=== PATIENT | male | born 1940 | race African-American/Black ===

== ENCOUNTER 2022-06-16 12:18 | Inpatient (IN) ==
[2022-06-16 13:55] LABS: Basophils % 0.4 % (0.0-0.8); Eosinophils # 0.2 10*3/uL (0.0-0.87); Hematocrit 46.4 VOL% (42.0-52.0); Hemoglobin 14.2 GM/DL (14.0-18.0); Immature Granulocytes % 0.4 %; Immature Granulocytes Absolute 0.04 #; Lymphocytes # 2.1 10*3/uL (1.4-4.0); Lymphocytes % 22.6 % (21.2-54.2); Mean Corpuscular HGB Conc 30.6 GM/DL (32-36); Mean Corpuscular Volume 101.1 FL (87-102); Mean Platelet Volume 11.6 FL (9.6-12.0); Monocytes # 0.6 10*3/uL (0.11-0.8); Monocytes % 6.2 % (1.7-12.7); NRBC # 0.02 10*3/uL; Neutrophils % 68.4 % (38.7-73.9); Platelet Count 226 T/CUMM (130-400); Red Blood Count 4.59 MC/CUMM (3.8-5.5); Red Cell Distribution Width 14.7 % (9.3-17.3); White Blood Count 9.4 T/CUMM (4-12)
[2022-06-16 14:28] LABS: Albumin 3.5 G/DL (3.4-5.0); Bilirubin,Total 0.4 MG/DL (0.20-1.00); Calcium 10.4 MG/DL (8.5-10.1); Osmolality,Calculated 341.7 MOS/KG (273-304); Potassium 3.5 MMOL/L (3.5-5.1); Total Protein 8.8 G/DL (6.4-8.2)
[2022-06-16] MEDS ORDERED: ACETAMINOPHEN 325 MG TABLET PO PRN (15:43)
[2022-06-16] MEDS ORDERED: ONDANSETRON 4 MG/2 ML VIAL IV PRN (15:43)
[2022-06-16] MEDS ORDERED: GLUCAGON 1 MG VIAL IM PRN (15:43)
[2022-06-16] MEDS ORDERED: DOCUSATE SODIUM 100 MG CAPSULE PO PRN (15:43)
[2022-06-16] MEDS ORDERED: ALUMINUM/MAGNES/SIMETH MAX STR 30 ML UDCUP PO PRN (15:43)
[2022-06-16] MEDS ORDERED: LACTULOSE 20 GM/30 ML UDCUP PO PRN (15:43)
[2022-06-16] MEDS ORDERED: DEXTROSE 10% 250 ML BAG IV PRN (15:50)
[2022-06-16] MEDS ORDERED: SIMETHICONE CHEW 125 MG TABLET PO PRN (17:00)
[2022-06-16] MEDS: DEXTROSE 5% 1,000 ML IV SCH (18:07)
[2022-06-16] MEDS: DIVALPROEX ER 250 MG TABLET PO SCH (21:39)
[2022-06-16] MEDS: DONEPEZIL 5 MG TABLET PO SCH (21:39)
[2022-06-17 02:25] LABS: Bilirubin,Urine Negative (Negative); Blood, Urine Negative (Negative); Glucose,Urine (UA) Negative (Negative); Hyaline Casts,Urine 12 /LPF (0-3); Ketones,Urine Negative (Negative); Mucus,Urine Occasional /LPF (Occasional); Nitrite,Urine Negative (Negative); Protein,Urine Negative (Negative); RBC,Urine 1 /HPF (0-4); Squamous Epithelial Cell,Urine Occasional /HPF (0-10); Urine Appearance Clear (Clear); Urine Color Yellow (Yellow); Urine Specific Gravity 1.025 (1.001-1.035); Urine Urobilinogen 0.2 eU/dL (<2.0)
[2022-06-17 05:28] LABS: Basophils % 0.5 % (0.0-0.8); Eosinophils # 0.3 10*3/uL (0.0-0.87); Hemoglobin 12.3 GM/DL (14.0-18.0); Immature Granulocytes % 0.4 %; Immature Granulocytes Absolute 0.03 #; Lymphocytes # 2.1 10*3/uL (1.4-4.0); Lymphocytes % 24.6 % (21.2-54.2); Mean Corpuscular Volume 101.7 FL (87-102); Mean Platelet Volume 12.1 FL (9.6-12.0); Monocytes # 0.6 10*3/uL (0.11-0.8); Monocytes % 7.5 % (1.7-12.7); Platelet Count 183 T/CUMM (130-400); Red Blood Count 4.03 MC/CUMM (3.8-5.5); Red Cell Distribution Width 14.9 % (9.3-17.3); White Blood Count 8.4 T/CUMM (4-12)
[2022-06-17 05:59] LABS: Albumin 2.9 G/DL (3.4-5.0); Bilirubin,Total 0.6 MG/DL (0.20-1.00); Calcium 9.1 MG/DL (8.5-10.1); Osmolality,Calculated 344.5 MOS/KG (273-304); Potassium 3.1 MMOL/L (3.5-5.1); Risk Ratio 5.55; Thyroid Stimulating Hormone 2.14 uIU/ml (0.358-3.74); Total Protein 7.7 G/DL (6.4-8.2); VLDL Cholesterol 25.6 MG/DL
[2022-06-17] MEDS: DEXTROSE 5% 1,000 ML IV SCH ×2 (08:04→15:06)
[2022-06-17] MEDS: PANTOPRAZOLE 40 MG TABLET PO SCH (08:04)
[2022-06-17] MEDS: BISACODYL 5 MG TABLET PO SCH (08:04)
[2022-06-17] MEDS ORDERED: ZIPRASIDONE 20 MG/1 ML VIAL IM PRN (11:05)
[2022-06-17] MEDS ORDERED: MAGNESIUM SULF RIDER 2 GM/50 ML PREMIX IV PRN (11:16)
[2022-06-17] MEDS ORDERED: MAGNESIUM SULF RIDER 4 GM/100 ML PREMIX IV PRN (11:16)
[2022-06-17] MEDS ORDERED: traZODone 50 MG TABLET PO PRN (11:17)
[2022-06-17] MEDS: cefTRIAXone 1,000 MG in SODIUM CHLORIDE 0.9% 100 ML IV SCH (11:56)
[2022-06-17 12:30] LABS: Calcium 9.1 MG/DL (8.5-10.1); Osmolality,Calculated 336.7 MOS/KG (273-304); Potassium 3.3 MMOL/L (3.5-5.1)
[2022-06-17] MEDS: POTASSIUM CHLORIDE RIDER 10 MEQ/100 ML PREMIX IV PRN ×2 (13:56→15:06)
[2022-06-17 18:27] LABS: Calcium 9.3 MG/DL (8.5-10.1); Osmolality,Calculated 335.7 MOS/KG (273-304); Potassium 3.7 MMOL/L (3.5-5.1)
[2022-06-17] MEDS: APIXABAN 2.5 MG TABLET PO SCH (21:21)
[2022-06-17] MEDS: DIVALPROEX ER 250 MG TABLET PO SCH (21:21)
[2022-06-17] MEDS: DONEPEZIL 5 MG TABLET PO SCH (21:21)
[2022-06-18 00:46] LABS: Basophils % 0.5 % (0.0-0.8); Eosinophils # 0.2 10*3/uL (0.0-0.87); Eosinophils % 2.6 % (0.00-10.9); Hematocrit 40.3 VOL% (42.0-52.0); Hemoglobin 12.1 GM/DL (14.0-18.0); Immature Granulocytes % 0.4 %; Immature Granulocytes Absolute 0.03 #; Lymphocytes # 2.1 10*3/uL (1.4-4.0); Mean Corpuscular Volume 101.5 FL (87-102); Mean Platelet Volume 11.8 FL (9.6-12.0); Monocytes # 0.7 10*3/uL (0.11-0.8); Monocytes % 7.7 % (1.7-12.7); Neutrophils % 63.8 % (38.7-73.9); Platelet Count 172 T/CUMM (130-400); Red Blood Count 3.97 MC/CUMM (3.8-5.5); Red Cell Distribution Width 14.8 % (9.3-17.3); White Blood Count 8.4 T/CUMM (4-12)
[2022-06-18 00:54] LABS: Phosphorous 3.1 MG/DL (2.5-4.9)
[2022-06-18 00:56] LABS: Albumin 2.9 G/DL (3.4-5.0); Bilirubin,Total 0.5 MG/DL (0.20-1.00); Calcium 9.5 MG/DL (8.5-10.1); Osmolality,Calculated 330.9 MOS/KG (273-304); Potassium 3.2 MMOL/L (3.5-5.1); Total Protein 7.8 G/DL (6.4-8.2)
[2022-06-18] MEDS: POTASSIUM CHLORIDE RIDER 10 MEQ/100 ML PREMIX IV PRN ×4 (04:22→08:09)
[2022-06-18] MEDS: DEXTROSE 5% 1,000 ML IV SCH (08:08)
[2022-06-18] MEDS: METOPROLOL SUCCINATE XL 25 MG TABLET PO SCH (10:15)
[2022-06-18] MEDS: APIXABAN 2.5 MG TABLET PO SCH ×2 (10:15→21:52)
[2022-06-18] MEDS: BISACODYL 5 MG TABLET PO SCH (10:15)
[2022-06-18] MEDS: POLYETHYLENE GLYCOL POWDER 17 GM PACK PO SCH (10:15)
[2022-06-18] MEDS: PANTOPRAZOLE 40 MG TABLET PO SCH (10:15)
[2022-06-18] MEDS: cefTRIAXone 1,000 MG in SODIUM CHLORIDE 0.9% 100 ML IV SCH (10:21)
[2022-06-18 15:49] LABS: Calcium 9.3 MG/DL (8.5-10.1); Osmolality,Calculated 321.3 MOS/KG (273-304)
[2022-06-18] MEDS: DIVALPROEX ER 250 MG TABLET PO SCH (21:52)
[2022-06-18] MEDS: DONEPEZIL 5 MG TABLET PO SCH (21:53)
[2022-06-19 05:41] LABS: Albumin 2.8 G/DL (3.4-5.0); Bilirubin,Total 0.5 MG/DL (0.20-1.00); Calcium 9.2 MG/DL (8.5-10.1); Osmolality,Calculated 311.7 MOS/KG (273-304); Potassium 3.2 MMOL/L (3.5-5.1); Total Protein 7.3 G/DL (6.4-8.2)
[2022-06-19 05:55] LABS: Basophils % 0.3 % (0.0-0.8); Eosinophils # 0.2 10*3/uL (0.0-0.87); Eosinophils % 3.4 % (0.00-10.9); Hematocrit 37.4 VOL% (42.0-52.0); Hemoglobin 11.2 GM/DL (14.0-18.0); Immature Granulocytes % 0.2 %; Immature Granulocytes Absolute 0.01 #; Lymphocytes % 30.1 % (21.2-54.2); Mean Corpuscular HGB Conc 29.9 GM/DL (32-36); Mean Corpuscular Volume 103.3 FL (87-102); Mean Platelet Volume 12.1 FL (9.6-12.0); Monocytes # 0.5 10*3/uL (0.11-0.8); Monocytes % 8.1 % (1.7-12.7); Neutrophils % 57.9 % (38.7-73.9); Platelet Count 155 T/CUMM (130-400); Red Blood Count 3.62 MC/CUMM (3.8-5.5); Red Cell Distribution Width 14.6 % (9.3-17.3); White Blood Count 6.5 T/CUMM (4-12)
[2022-06-19] MEDS: DEXTROSE 5% 1,000 ML IV SCH (06:20)
[2022-06-19] MEDS: cefTRIAXone 1,000 MG in SODIUM CHLORIDE 0.9% 100 ML IV SCH (08:19)
[2022-06-19] MEDS: BISACODYL 5 MG TABLET PO SCH (08:23)
[2022-06-19] MEDS: PANTOPRAZOLE 40 MG TABLET PO SCH (08:23)
[2022-06-19] MEDS: APIXABAN 2.5 MG TABLET PO SCH (08:23)
[2022-06-19] MEDS: METOPROLOL SUCCINATE XL 25 MG TABLET PO SCH (08:24)
[2022-06-19] MEDS: POLYETHYLENE GLYCOL POWDER 17 GM PACK PO SCH (08:24)
[2022-06-19] MEDS ORDERED: POTASSIUM CHLORIDE 20 MEQ TABLET PO PRN (11:36)
[2022-06-19] MEDS ORDERED: POTASSIUM CHLORIDE 20 MEQ TABLET PO ONE (12:28)
[2022-06-19 15:52] VITALS: BP 112/80
== END 2022-06-19 15:24 | DRG 683 ==
LOC: EDUNIT# → EDBD → N.ED 12:18 → N.EDINP 15:43 → SUATTDRO 15:43 → N.5E 17:19
PROVIDERS: ADMIT Internal Medicine; ATTEND Internal Medicine